=== PATIENT | male | born 1950 | race American Indian/Alaskan Native ===

== ENCOUNTER 2022-02-10 16:00 | Outpatient (RCR) | payer BC, MEDICARE | END 2022-02-11 | LOC: PT 16:00 | PROVIDERS: ATTEND Neurological Surgery | DX: M51.16 Intervertebral disc disorders with radiculopathy, lumbar region (principal) ==

== ENCOUNTER 2022-03-05 15:00 | Outpatient (RCR) | payer BC, MEDICARE | END 2022-03-13 | LOC: PT 15:00 | PROVIDERS: ATTEND Neurological Surgery | DX: M51.16 Intervertebral disc disorders with radiculopathy, lumbar region (principal) ==